=== PATIENT | female | born 1945 | race Caucasian/White ===

== ENCOUNTER 2016-12-04 07:00 | Day surgery (SDC) | payer OTHER, MEDICARE ==
[~2016-12-04] VITALS: Ht 160 cm; Wt 112.0 kg
[~2016-12-04 07:00] MED LIST: ASPIR-LOW81 MG PO; ASPIRIN EC325 MG PO; ASPIRIN81 M1 PO; ATARAX10 MG PO; CEFTIN500 MG PO; CELEBREX200 MG PO; Combivent IH; DELTASONE20 MG PO; ENDOCET 5-3251 EACH PO; HYDROXYZINE HCL10 MG PO; LO-DOSE ASPIRIN81 M1 PO; LOSARTAN-HCTZ1 EAC1 PO; LOVASTATIN40 MG PO; METFORMIN HCL500 MG PO; NEXIUM40 MG PO; NORVASC5 MG PO; OCUVITE1 TABLET PO; PRAVACHOL80 MG PO; PRILOSEC20 MG PO; SENNA PLUS TAB1 EACH PO; SYNTHROID150 MCG PO
[2016-12-04 07:35] LABS: POINT-OF-CARE METER ID UU14174212
[2016-12-04 07:37] VITALS: BP 149/67
[2016-12-04 11:15] VITALS: BP 118/55
[2016-12-04 12:15] VITALS: BP 139/63
== END 2016-12-04 12:40 | disposition home or self-care (01) ==
LOC: SDC 07:00
PROVIDERS: Otolaryngology
PROC: 0CTPXZZ Resection of Tonsils, External Approach (ICD-10-PCS; principal; 2016-12-04)
DX: J35.01 Chronic tonsillitis (principal); E78.00 Pure hypercholesterolemia, unspecified; I10 Essential (primary) hypertension; E11.9 Type 2 diabetes mellitus without complications; E03.9 Hypothyroidism, unspecified; K21.9 Gastro-esophageal reflux disease without esophagitis; E66.9 Obesity, unspecified; Z68.41 Body mass index [BMI] 40.0-44.9, adult; G47.30 Sleep apnea, unspecified; Z79.82 Long term (current) use of aspirin; Z86.73 Personal history of transient ischemic attack (TIA), and cerebral infarction without residual deficits; Z88.0 Allergy status to penicillin
CPT/HCPCS: 82948; 88304; J0131; J1170; J2405; J2765; J3010